=== PATIENT | male | born 1965 | race Caucasian/White ===

== ENCOUNTER 2018-09-14 07:15 | Emergency (ER) | payer OTHER ==
[~2018-09-14] VITALS: Ht 180.3 cm; Wt 81.6 kg
[2018-09-14 07:15] VITALS: BP_SYST 125
--- NOTE | 2018-09-14 07:15 | NUR ---
BROUGHT BACK TO BED #7 AND TRIAGED. REPORT GIVEN TO ANISA
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
[2018-09-14] MEDS ORDERED: KETOROLAC TROMETHAMINE 60 MG/2 ML VIAL IM ONE (07:45)
--- NOTE | 2018-09-14 08:02 | NUR ---
Patient is off the unit going to CT scan.
--- NOTE | 2018-09-14 08:10 | NUR ---
TAKEN TO RADIOLOGY VIA WHEELCHAIR FOR TESTING
--- NOTE | 2018-09-14 08:17 | NUR ---
RETURNED FROM RADIOLOGY, PLACED BACK TO BED #7 SAFELY
--- NOTE | 2018-09-14 09:20 | NUR ---
DR FINCH IN TO SEE PT FOR RE-EVALUATION
--- NOTE | 2018-09-14 09:44 | NUR ---
Patient given written and verbal discharge instructions and verbalizes understanding. ER MD discussed with patient the results and treatment provided. Patient in stable condition. ID arm band removed. Rx of NAPROSYN given. Patient educated on pain management and to follow up with PMD. Pain Scale 1/10. Opportunity for questions provided and answered. Medication side effect fact sheet provided.
[2018-09-14 09:45] VITALS: BP_SYST 137
== END 2018-09-14 09:44 | disposition home or self-care (01) ==
LOC: SED 07:15
DX: S16.1XXA Strain of muscle, fascia and tendon at neck level, initial encounter (principal); V43.52XA Car driver injured in collision with other type car in traffic accident, initial encounter; Y93.89 Activity, other specified; Y92.410 Unspecified street and highway as the place of occurrence of the external cause; Y99.8 Other external cause status
CPT/HCPCS: 70450; 72125; 96372; 99284; J1885

== ENCOUNTER → 2018-12-27 | Outpatient (CLI) | payer OTHER ==
[~2018-12-27] MED LIST: BARIUM SULFATE 135 ML SUSP.RECON (E-Z-HD) PO ONE
== END | disposition home or self-care (01) ==
LOC: SRD 08:24
PROVIDERS: ATTEND Family Medicine
DX: K44.9 Diaphragmatic hernia without obstruction or gangrene (principal); K21.9 Gastro-esophageal reflux disease without esophagitis
CPT/HCPCS: 74220-TC

== ENCOUNTER 2020-09-01 11:07 | Inpatient (IN) | payer OTHER, SELFPAY ==
[~2020-09-01] VITALS: Ht 180.3 cm; Wt 81.9 kg
[2020-09-01 11:14] VITALS: BP_SYST 151; BP_SYST 48
--- NOTE | 2020-09-01 11:19 | NUR ---
Patient to ER bed 3 to gown for evaluation. Side rails up. Report given to Corky BAIN
--- NOTE | 2020-09-01 11:20 | NUR ---
Pt came into ER with complaint of intermittent right upper abdominal pain radiating the back 11/23 Xtoday. Pt reports N/V/DXtoday. Pt reports green colored stool Xtoday. Pt reports frequent urination no pain or blood and frequent diarrhea no pain or blood. Pt resting in gurney attached to monitor VSS no distress noted with family at bedside.
--- NOTE | 2020-09-01 11:25 | NUR ---
Dr Shipley evaluating patient at bedside
[2020-09-01] MEDS ORDERED: ONDANSETRON HCL 4 MG/2 ML VIAL IVP ONE (11:45)
[2020-09-01] MEDS ORDERED: NACL 0.9% 1,000 ML IV ONE (11:45)
[2020-09-01] MEDS ORDERED: PANTOPRAZOLE SODIUM 40 MG/VIAL (PROTONIX) IVP ONE (11:45)
--- NOTE | 2020-09-01 11:49 | NUR ---
Blood collected and sent to lab.
--- NOTE | 2020-09-01 11:49 | NUR ---
# 20 gauge angiocath placed to RFA. Use of asceptic technique. Opsite placed over site. Blood return noted. Blood for lab drawn from site. Flushed with 10 cc of normal saline. No evidence of infiltration noted. Patient tolerated well.
[2020-09-01 11:50] LABS: BASOPHILS % (AUTO) 0.4 % (0.0-2.0); EOSINOPHILS # (AUTO) 0.1 K/uL (0.0-0.4); EOSINOPHILS % (AUTO) 1.5 % (0.0-4.0); HEMATOCRIT 42.8 % (36-54); HEMOGLOBIN 14.8 g/dL (14.0-18.0); LYMPHOCYTES # (AUTO) 2.1 K/uL (1.0-5.5); LYMPHOCYTES % (AUTO) 29.9 % (20.5-51.5); MEAN CORPUSCULAR HEMOGLOBIN 31 pg (27-31); MEAN CORPUSCULAR HGB CONC 35 % (32-36); MEAN CORPUSCULAR VOLUME 90 fL (79.0-98.0); MONOCYTES # (AUTO) 0.4 K/uL (0.0-1.0); MONOCYTES % (AUTO) 6.3 % (1.7-9.3); NEUTROPHILS # (AUTO) 4.4 K/uL (1.8-7.7); NEUTROPHILS % (AUTO) 61.9 % (40.0-70.0); PLATELET COUNT (AUTO) 197 K/uL (130-430); RED BLOOD CELL COUNT(AUTO) 4.74 MIL/uL (4.2-6.2); RED CELL DISTRIBUTION WIDTH 13.3 % (9.0-15.0); WHITE BLOOD COUNT (AUTO) 7.1 K/uL (4.8-10.8)
--- NOTE | 2020-09-01 12:07 | NUR ---
CT with contrast consent reviewed and signed by pt.
[2020-09-01 12:10] LABS: CALCIUM 9.1 mg/dL (8.4-11.0); CREATININE 1.03 mg/dL (0.55-1.30); POTASSIUM 4.1 mmol/L (3.5-5.1)
[2020-09-01 12:19] LABS: ALBUMIN 3.9 g/dL (3.4-4.8); TOTAL BILIRUBIN 0.6 mg/dL (0.0-1.0)
--- NOTE | 2020-09-01 12:20 | NUR ---
Patient transported to radiology via wheelchair, accompanied by tech.
--- NOTE | 2020-09-01 12:23 | NUR ---
Urine collected and sent to lab.
--- NOTE | 2020-09-01 12:34 | NUR ---
Pt back from CT and reattached to monitors. Resting in [place] no distress noted.
[2020-09-01 12:38] LABS: BILIRUBIN,URINE NEGATIVE (NEGATIVE); BLOOD, URINE NEGATIVE (NEGATIVE); CLARITY/URINE CLEAR (CLEAR); COLOR,URINE YELLOW (YELLOW); GLUCOSE,URINE 2+ (NEGATIVE); KETONES,URINE NEGATIVE (NEGATIVE); LEUKOCYTE ESTERASE ,URINE NEGATIVE (NEGATIVE); NITRITE, URINE NEGATIVE (NEGATIVE); PH,URINE 5.5 (5.0-8.0); PROTEIN URINE NEGATIVE (NEGATIVE); UROBILINOGEN,URINE 0.2 (0.2-1.0)
[2020-09-01] MEDS ORDERED: MORPHINE 2 MG/ML INJ. SYRINGE IVP ONE (12:45)
--- NOTE | 2020-09-01 13:30 | NUR ---
Pt resting in gurney attached to monitor VSS no distress noted. Family at bedside.
[2020-09-01 13:38] LABS: BACTERIA,URINE None Seen /HPF (None Seen); RBC,URINE 0-3 /HPF (0-3); WBC,URINE 0-3 /HPF (0-3)
[2020-09-01] MEDS ORDERED: MAG HYDROX/AL HYDROX/SIMETH 30 ML, DICYCLOMINE HCL 20 MG, LIDOCAINE VISCOUS 2% 15ML (PO... PO ONE ×3 (14:00)
[2020-09-01] MEDS ORDERED: HYDR-3917 PO ×2 (14:01)
[2020-09-01] MEDS ORDERED: ONDA-8 TL ×2 (14:01)
--- NOTE | 2020-09-01 15:00 | NUR ---
Pt resting in [place] attached to monitor VSS no distress noted.
[2020-09-01] MEDS ORDERED: DIPHENHYDRAMINE INJ 50 MG/ML VIAL IVP ONE (15:30)
[2020-09-01] MEDS ORDERED: MORPHINE 4 MG INJ. 4 MG/ML VIAL IVP ONE (15:30)
--- NOTE | 2020-09-01 16:21 | NUR ---
awaiting admit orders, calm, alert, medicated for pain
--- NOTE | 2020-09-01 17:10 | NUR ---
dr van in to assess
[2020-09-01] MEDS ORDERED: fentaNYL CITRATE/PF 100 MCG/2 ML AMP IVP ONE (17:30)
--- NOTE | 2020-09-01 18:36 | NUR ---
UP AMBULATING TO BATHROOM, STEADY GAIT
[2020-09-01] MEDS ORDERED: ACETAMINOPHEN 325 MG TABLET PO PRN (19:15)
[2020-09-01] MEDS ORDERED: ONDANSETRON HCL 4 MG/2 ML VIAL IVP PRN (19:15)
[2020-09-01] MEDS ORDERED: MORPHINE 2 MG/ML INJ. SYRINGE IVP PRN (19:15)
--- NOTE | 2020-09-01 19:27 | NUR ---
DR FAYE IN TO ASSESS
--- NOTE | 2020-09-01 21:32 | NUR ---
Patient will be admitted to care of [facility]. Admitted to M/S unit. Will go to room 100. Belongings list completed. Complete and up to date summary report printed. SBAR report to be given at bedside with opportunity for questions.
[2020-09-01 21:40] VITALS: BP_SYST 147
--- NOTE | 2020-09-01 21:40 | NUR ---
ADMISSION: The patient, TEETEE THOMPSON, 54 y/o, M admitted by JUAN FAYE MD, was given written information regarding hospital policies, unit procedures and contact persons. Valuables were checked and documented.
[2020-09-01] MEDS: NACL 0.9% 1,000 ML IV SCH (22:29)
[2020-09-01] MEDS: PANTOPRAZOLE SODIUM 40 MG/VIAL (PROTONIX) IVP SCH (22:30)
--- NOTE | 2020-09-01 22:44 | NUR ---
PAGED DR. FAYE I SPOKE WITH KRAIG MOREIRA
--- NOTE | 2020-09-01 22:58 | NUR ---
ADMISSION ADMISSION PROCESS INITIATED. STARTED ON IVF NS @150ML/HR AND PROTONIX IVP ORDERED. NO C/O PAIN AT THIS TIME. PATIENT REQUESTING FOR SLEEPING PILL WAS NOT ABLE TO GET SOME REST TODAY. DR. FAYE NOTIFIED AND GIVE ORDER FOR RESTORIL.
[2020-09-01] MEDS ORDERED: TEMAZEPAM 7.5 MG CAPSULE PO PRN (23:00)
--- NOTE | 2020-09-01 23:09 | NUR ---
SLEEPING PILL PATIENT MEDICATED WITH RESTORIL ORDERED.
--- NOTE | 2020-09-02 00:36 | NUR ---
CONSULT: CONSULT CALLED FOR DR. PIPER I SPOKE WITH NAVIN MOREIRA REASON FOR CONSULT: GASTRITIS REQUESTING CONSULT: DR. FAYE [employer] PHONE NUMBER: [phone]
--- NOTE | 2020-09-02 00:45 | NUR ---
ROUNDS PATIENT RESTING IN BED. NO DISTRESS NOTED.
--- NOTE | 2020-09-02 02:51 | NUR ---
ROUNDS CONDITION UNCHANGED. IVF INFUSING.
[2020-09-02] MEDS: NACL 0.9% 1,000 ML IV SCH ×2 (05:01→08:35)
--- NOTE | 2020-09-02 06:34 | NUR ---
CLOSING NOTES PATIENT NEEDS ATTENDED. KEPT NPO FOR ABDOMINAL ULTRASOUND TODAY. IVF INFUSING.
[2020-09-02 07:08] LABS: ALBUMIN 3.1 g/dL (3.4-4.8); CALCIUM 7.8 mg/dL (8.4-11.0); CREATININE 0.89 mg/dL (0.55-1.30); POTASSIUM 3.9 mmol/L (3.5-5.1); TOTAL BILIRUBIN 0.7 mg/dL (0.0-1.0)
--- NOTE | 2020-09-02 07:34 | NUR ---
OPENING NOTE Received report from night nurse. Patient is alert and oriented x4. On room air and tolerating well with no signs of shortness of breath noted. IV is patent, infusing fluids as ordered with no signs of infiltration noted. Bed locked and in lowest position. Call light within reach. EGD scheduled for today. Consent signed. Will continue to monitor.
[2020-09-02] MEDS ORDERED: MEPERIDINE 100 MG INJ. 100 MG/ML VIAL ONE (07:49)
[2020-09-02] MEDS ORDERED: SIMETHICONE 40 MG/0.6 ML ML ONE (07:49)
[2020-09-02] MEDS ORDERED: MIDAZOLAM HCL 5 MG/5 ML VIAL ONE (07:49)
[2020-09-02 08:00] VITALS: BP_SYST 122
--- NOTE | 2020-09-02 08:48 | NUR ---
EGD PATIENT RETURNED FROM EGD. PATIENT IN STABLE CONDITION. WILL MONITOR.
[2020-09-02] MEDS: PANTOPRAZOLE SODIUM 40 MG/VIAL (PROTONIX) IVP SCH (08:55)
[2020-09-02] MEDS ORDERED: PRO40 PO (09:28)
[2020-09-02 09:48] VITALS: BP_SYST 122
--- NOTE | 2020-09-02 10:22 | NUR ---
D/C Patient Patient given medication reconciliation form and D/C instructions. Exit Care provided. Patient verbalized understanding. MD discussed with patient the results and treatment provided. Ambulatory with steady gait for discharge to home. Patient in stable condition, ID band removed. IV catheter removed, intact and dressing applied, no active bleeding. Rx of Protonix given. All belongings sent with patient.
[2020-09-03] MEDS ORDERED: PANTOPRAZOLE SODIUM 40 MG TAB PO SCH (09:00)
== END 2020-09-02 10:22 | disposition home or self-care (01) | DRG 392 ==
LOC: SED 11:07 → SMU 19:14
PROVIDERS: ADMIT Internal Medicine Cardiovascular Disease; ATTEND Internal Medicine Cardiovascular Disease
PROC: 0DB68ZX Excision of Stomach, Via Natural or Artificial Opening Endoscopic, Diagnostic (ICD-10-PCS; principal; 2020-09-01)
PROC: 0DB98ZX Excision of Duodenum, Via Natural or Artificial Opening Endoscopic, Diagnostic (ICD-10-PCS; 2020-09-01)
DX: K29.70 Gastritis, unspecified, without bleeding (principal); E11.9 Type 2 diabetes mellitus without complications; G89.29 Other chronic pain; I10 Essential (primary) hypertension; K21.9 Gastro-esophageal reflux disease without esophagitis; K82.4 Cholesterolosis of gallbladder; K31.7 Polyp of stomach and duodenum; Z20.822 Contact with and (suspected) exposure to COVID-19; K44.9 Diaphragmatic hernia without obstruction or gangrene; R13.10 Dysphagia, unspecified; Z79.4 Long term (current) use of insulin
CPT/HCPCS: 36415; 43239; 76376; 76700-TC; 80053; 80061; 81000; 83690; 83735; 85025; 88305; 88312; 88313; 93005; 96361; 96374; 96375; 96376; 99285; C9113; J1200; J2001; J2175; J2250; J2270; J2405; J3010; Q9967

== ENCOUNTER 2022-05-14 07:42 | Outpatient (CLI) | payer OTHER ==
[~2022-05-14 07:42] MED LIST changes: -BARIUM SULFATE 135 ML SUSP.RECON (E-Z-HD) PO ONE; +PRO40 PO
== END 2022-05-14 18:00 | disposition home or self-care (01) ==
LOC: SUS 07:42
PROVIDERS: ATTEND Internal Medicine
DX: Z01.818 Encounter for other preprocedural examination (principal); R16.2 Hepatomegaly with splenomegaly, not elsewhere classified; N20.0 Calculus of kidney; I45.89 Other specified conduction disorders
CPT/HCPCS: 71046-TC; 76700-TC; 93005

== ENCOUNTER 2023-08-15 03:32 | Emergency (ER) | payer OTHER ==
[~2023-08-15] VITALS: Ht 180.3 cm; Wt 86.2 kg
[2023-08-15 03:40] VITALS: BP_SYST 147; PULSE 76; RESP 20; TEMP 98; O2SAT 98
[2023-08-15] MEDS: KETOROLAC TROMETHAMINE 30 MG VIAL IVP ONE (04:34)
[2023-08-15] MEDS: NACL 0.9% 1,000 ML IV ONE (04:49)
[2023-08-15] MEDS: ONDANSETRON HCL 4 MG/2 ML VIAL IVP ONE (04:51)
[2023-08-15 04:52] LABS: BASOPHILS # (AUTO) 0.1 K/uL (0.0-0.2); BASOPHILS % (AUTO) 0.8 % (0.0-2.0); EOSINOPHILS # (AUTO) 0.3 K/uL (0.0-0.4); EOSINOPHILS % (AUTO) 3.7 % (0.0-4.0); HEMATOCRIT 39.5 % (36-54); HEMOGLOBIN 13.7 g/dL (14.0-18.0); LYMPHOCYTES # (AUTO) 2.2 K/uL (1.0-5.5); LYMPHOCYTES % (AUTO) 28.8 % (20.5-51.5); MEAN CORPUSCULAR HEMOGLOBIN 32 pg (27-31); MEAN CORPUSCULAR HGB CONC 35 % (32-36); MEAN CORPUSCULAR VOLUME 91 fL (79.0-98.0); MONOCYTES # (AUTO) 0.5 K/uL (0.0-1.0); MONOCYTES % (AUTO) 6.9 % (1.7-9.3); NEUTROPHILS # (AUTO) 4.6 K/uL (1.8-7.7); NEUTROPHILS % (AUTO) 59.8 % (40.0-70.0); PLATELET COUNT (AUTO) 212 K/uL (130-430); RED BLOOD CELL COUNT(AUTO) 4.35 MIL/uL (4.2-6.2); WHITE BLOOD COUNT (AUTO) 7.7 K/uL (4.8-10.8)
[2023-08-15] MEDS: MORPHINE 4 MG INJ. 4 MG/ML VIAL IVP ONE ×2 (05:11→08:04)
[2023-08-15 05:22] LABS: ALBUMIN 3.6 g/dL (3.4-4.8); BILIRUBIN,DIRECT 0.1 mg/dL (0.0-0.3); CALCIUM 8.4 mg/dL (8.4-11.0); CREATININE 1.01 mg/dL (0.55-1.30); POTASSIUM 3.9 mmol/L (3.5-5.1); TOTAL BILIRUBIN 0.6 mg/dL (0.0-1.0); TOTAL PROTEIN, SERUM 7.3 g/dL (6.4-8.3)
[2023-08-15 07:27] LABS: BILIRUBIN,URINE NEGATIVE (NEGATIVE); BLOOD, URINE NEGATIVE (NEGATIVE); CLARITY/URINE CLEAR (CLEAR); COLOR,URINE YELLOW (YELLOW); GLUCOSE,URINE NEGATIVE (NEGATIVE); KETONES,URINE NEGATIVE (NEGATIVE); LEUKOCYTE ESTERASE ,URINE NEGATIVE (NEGATIVE); NITRITE, URINE NEGATIVE (NEGATIVE); PROTEIN URINE NEGATIVE (NEGATIVE); UROBILINOGEN,URINE 0.2 (0.2-1.0)
[2023-08-15] MEDS ORDERED: HYDR-3917 PO (08:34)
[2023-08-15] MEDS ORDERED: IBUP-1971 PO (08:34)
[2023-08-15 08:43] VITALS: BP_SYST 135; PULSE 72; RESP 22; TEMP 98.4; O2SAT 99
== END 2023-08-15 08:43 | disposition home or self-care (01) ==
LOC: SED 03:32
DX: R10.32 Left lower quadrant pain (principal); R11.0 Nausea; Z87.442 Personal history of urinary calculi; Z79.899 Other long term (current) drug therapy
CPT/HCPCS: 99285; 74176; 96374; 96375; 96361; 80076; 80048; 81001; 83690; 85025; 36415; 96376; J1885; J2405; J2270; J7030; 81003

== ENCOUNTER 2023-10-18 09:25 | Emergency (ER) | payer OTHER ==
[~2023-10-18] VITALS: Ht 180.3 cm; Wt 83.9 kg
[~2023-10-18 09:25] MED LIST changes: +HYDR-3917 PO; +IBUP-1971 PO
[2023-10-18 09:48] VITALS: BP_SYST 152; PULSE 72; RESP 22; TEMP 98.3; O2SAT 100
[2023-10-18 10:20] LABS: BASOPHILS # (AUTO) 0.1 K/uL (0.0-0.2); EOSINOPHILS # (AUTO) 0.3 K/uL (0.0-0.4); EOSINOPHILS % (AUTO) 4.1 % (0.0-4.0); HEMATOCRIT 38.1 % (36-54); HEMOGLOBIN 12.8 g/dL (14.0-18.0); LYMPHOCYTES # (AUTO) 2.1 K/uL (1.0-5.5); MEAN CORPUSCULAR HEMOGLOBIN 30 pg (27-31); MEAN CORPUSCULAR HGB CONC 34 % (32-36); MEAN CORPUSCULAR VOLUME 90 fL (79.0-98.0); MONOCYTES # (AUTO) 0.5 K/uL (0.0-1.0); MONOCYTES % (AUTO) 6.8 % (1.7-9.3); NEUTROPHILS # (AUTO) 4.8 K/uL (1.8-7.7); NEUTROPHILS % (AUTO) 61.1 % (40.0-70.0); PLATELET COUNT (AUTO) 194 K/uL (130-430); RED BLOOD CELL COUNT(AUTO) 4.23 MIL/uL (4.2-6.2); RED CELL DISTRIBUTION WIDTH 13.9 % (9.0-15.0); WHITE BLOOD COUNT (AUTO) 7.9 K/uL (4.8-10.8)
[2023-10-18] MEDS: KETOROLAC TROMETHAMINE 60 MG/2 ML VIAL IM ONE (10:22)
[2023-10-18 10:36] LABS: CALCIUM 8.8 mg/dL (8.4-11.0); CREATININE 1.01 mg/dL (0.55-1.30)
[2023-10-18 11:10] LABS: BILIRUBIN,URINE NEGATIVE (NEGATIVE); BLOOD, URINE NEGATIVE (NEGATIVE); CLARITY/URINE CLEAR (CLEAR); COLOR,URINE YELLOW (YELLOW); GLUCOSE,URINE NEGATIVE (NEGATIVE); KETONES,URINE NEGATIVE (NEGATIVE); LEUKOCYTE ESTERASE ,URINE NEGATIVE (NEGATIVE); NITRITE, URINE NEGATIVE (NEGATIVE); PROTEIN URINE NEGATIVE (NEGATIVE); UROBILINOGEN,URINE 0.2 (0.2-1.0)
[2023-10-18] MEDS ORDERED: TRAM50TA2 PO (11:29)
[2023-10-18] MEDS ORDERED: AMOX-423 PO (11:31)
[2023-10-18 11:38] VITALS: BP_SYST 152; PULSE 72; RESP 22; TEMP 98.3; O2SAT 100
== END 2023-10-18 11:41 | disposition home or self-care (01) ==
LOC: SED 09:25
DX: R10.32 Left lower quadrant pain (principal); Z87.442 Personal history of urinary calculi; Z79.899 Other long term (current) drug therapy; Z79.2 Long term (current) use of antibiotics
CPT/HCPCS: 99283; 80048; 81001; 85025; 36415; 96372; 81003; J1885